=== PATIENT | male | born 1960 | race Caucasian/White ===

== ENCOUNTER 2023-08-09 08:15 | Emergency (ER) | payer OTHER, SELFPAY ==
[2023-08-09 08:21] VITALS: BP 130/90
--- NOTE | 2023-08-09 09:34 | ED.GENMED ---
History of Present Illness
General
Chief Complaint: Musculo-Skeletal Complaint
Source: patient
Exam Limitations: none
Time Seen by Provider: 08/09/23 08:43
Nursing documentation reviewed up to this point in time: agreed with
Travel History
Have you had any contact with someone who has COVID-19?: No
Do you have any symptoms of coronavirus? Fever > 100 degrees, chills, cough, shortness of breath, sore throat, loss of taste or smell, muscle aches, or headache?: No
History of Present Illness
History of Present Illness:
63-year-old male presenting to the emergency department today with concerns of right-sided thumb discomfort after a water jug in the standard water jug hit his thumb has felt pain since occurred yesterday. Ongoing symptoms. Additionally has had
ongoing shoulder discomfort with certain movements ever since his grandson fell asleep on his shoulder 1 week ago. Has pain with certain movements but denies any redness swelling warmth or additional trauma to the area denies numbness weakness or
additional concerns.
Review of Systems
Review of Systems
Allergies reviewed?: Yes
All Other Systems: ROS reviewed and negative except as documented in HPI and ROS
Phy Exam
Physical Exam
Physical Exam:
GENERAL: Alert , in no apparent distress
EYE: pupils equal and reactive
NECK: Supple, no significant adenopathy.
ENT: o/p clr, mmm.
CARDIAC: Regular rate and rhythm .
LUNGS: Clear breath sounds bilaterally, no acute respiratory distress, no wheezes/rales/rhonchi
ABDOMEN: Soft, without focal tenderness, no r/g, no cvat
NEUROLOGICAL: Alert and oriented, no focal neuro deficits
SKIN: Warm and dry, skin intact.
MUSCULOSKELETAL: Reproducible tenderness when palpating the right anterior shoulder increased discomfort with movement overhead and with empty can test. No redness or warmth. Patient does have tenderness to the distal right thumb no overlying skin
changes no subungual hematoma good range of motion and strength. Normal sensation neurovascular intact, well perfused.
PSYCH: Normal and appropriate interaction.
Course
Orders/Labs/Results
Orders:
Orders
08/09/23 08:27
CR Finger(s)/thumb Min 2 Vw Rt Urgent
Comment:
Reason For Exam: jammed finger
Indicate Which Finger:: Thumb
08/09/23 08:31
CR Shoulder - Right Min 2 View Urgent
Comment:
Reason For Exam: pain
Vital Signs
Initial and Last Documented VS:
Initial Vital Signs
Temp Pulse Resp BP Pulse Ox
98.9 F 78 20 130/90 96
08/09/23 08:21 08/09/23 08:21 08/09/23 08:21 08/09/23 08:21 08/09/23 08:21
Last Documented Vital Signs
Temp Pulse Resp BP Pulse Ox
98.9 F 78 20 130/90 96
08/09/23 08:21 08/09/23 08:21 08/09/23 08:21 08/09/23 08:21 08/09/23 08:21
MDM/Problems Addressed
MDM/Problems Addressed:
63-year-old male presenting to the emergency department today with concerns of right thumb pain and right shoulder pain shoulder pain was ever since his son fell asleep on his shoulder. Made worse with certain movements and palpation. Appears to
be a mechanical pain to the right shoulder but no evidence of bony injury in general has good range of motion does not appear to be consistent with any referred pain considering that there was an inciting event and is reproducible with movement and
palpation. X-ray without signs of acute changes. Additionally had a injury where his thumb was hit by a water jug. X-ray did not show signs of fracture patient with likely soft tissue injury plan for rest ice compression and elevation with
hopeful improvement of symptoms over time. Return precautions given.
*Critical Care Note
Total Time (30-74mins, 75-104mins- exclusive of procedures): Not Applicable
ED Attending Note
-
Portions of this chart may have been created with voice recognition software.� Occasional wrong word or��sound alike� substitutions may have occurred due to the inherent limitations of voice recognition software.
Discharge Plan
Departure
Patient Disposition: Home (Routine Discharge)
Date of Disposition: 08/09/23
Time of Disposition: 09:37
Patient with high blood pressure during this ER visit?: No
Condition: Good
Covid-19: Not Applicable
Discharge Problem:
Finger contusion, Shoulder sprain
Instructions: Muscle and Bone Pain (DC)
Referrals:
Smith Hernández MD [Family Provider] -
Patsy Stroud I., DO [Active] - Follow up in 5-7 days
Activity Restrictions/Additional Instructions:
You came to the emergency department today with concerns of thumb pain and shoulder pain. X-rays without signs of fracture. These are soft tissue injuries and should be treated with gradual increasing activity over the next few days. Return to
the emergency department for any worsening, new or concerning symptoms
Interventions
Interventions:
*Risk Screen - Suicide Last Done: 08/09/23 08:24
*General Assessment Last Done: 08/09/23 08:24
*Neglect/Abuse Screening Last Done: 08/09/23 08:24
*ED COVID-19 Vaccine History Last Done: 08/09/23 08:24
== END 2023-08-09 09:47 | disposition home or self-care (01) ==
LOC: EMR 08:15
PROVIDERS: EMERGENCY PHYSICIAN Emergency Medicine; FAMILY PHYSICIAN Family Medicine
DX: S60.011A Contusion of right thumb without damage to nail, initial encounter (principal); S43.401A Unspecified sprain of right shoulder joint, initial encounter; W23.0XXA Caught, crushed, jammed, or pinched between moving objects, initial encounter; E78.5 Hyperlipidemia, unspecified
CPT/HCPCS: 99284; 73030; 73140

== ENCOUNTER → 2024-01-15 12:06 | Outpatient (REF) | payer OTHER, SELFPAY ==
[2024-01-15 15:36] LABS: % Basophils 0.5 % (0-2); % Eosinophils 2.3 % (0-6); % Immature Granulocytes 0.2 % (0-0.5); % Lymphocytes 23.9 % (20.5-51.1); % Monocytes 9.3 % (1.7-9.3); % Neutrophils 63.8 % (42.2-75.2); Absolute Eosinophils 0.2 10^3/uL (0-0.7); Absolute Monocytes 0.8 10^3/uL (0.1-0.6); Absolute Neutrophils 5.3 10^3/uL (1.4-6.5); Hematocrit 45.4 % (39.0-52.0); Hemoglobin 15.7 g/dL (13.0-18.0); Mean Corp Hgb Conc. 34.6 g/dL (33.0-37.0); Mean Corpuscular Volume 92.7 fL (80.0-94.0); Mean Platelet Volume 10.3 fL (7.4-10.4); Nucleated Red Blood Cells % 0 % (-); Platelet Count 299 10^3/uL (130-400); Red Cell Dist. Width 13.1 % (11.5-14.5); White Blood Cell Count 8.3 10^3/uL (4.8-10.8)
[2024-01-15 15:45] LABS: ALT (SGPT) 25 U/L (0-50); AST (SGOT) 49 U/L (17-59); Albumin 4.7 g/dl (3.5-5.0); Alkaline Phosphatase 62 U/L (38-126); Blood Urea Nitrogen 16 mg/dl (9-20); Calcium 9.9 mg/dl (8.4-10.2); Carbon Dioxide 29 mmol/L (22-30); Chloride 101 mmol/L (98-107); Glucose 89 mg/dl (70-99); HDL Cholesterol 47 mg/dl; LDL Cholesterol, Calculated 97 mg/dl; Potassium 4.5 mmol/L (3.5-5.1); Sodium 137 mmol/L (135-145); Total Cholesterol 163 mg/dl (50-199); Total Protein 7.6 g/dl (6.3-8.2); Triglyceride 97 mg/dl (10-149); Very Low Density Lipoprotein 19 mg/dl (0-30); eGFR > 60.00
[2024-01-15 16:16] LABS: PSA, Total - Screen 1.06 ng/ml (0.0-4.0); TSH Reflex To Free T4 0.86 uIU/ml (0.47-4.68)
[2024-01-15 17:30] LABS: Hepatitis C Antibody Negative (Negative)
== END ==
LOC: HWLAB 12:06
PROVIDERS: ATTENDING PHYSICIAN Nurse Practitioner Family; REFERRING PHYSICIAN Urology
DX: D68.2 Hereditary deficiency of other clotting factors (principal); E78.2 Mixed hyperlipidemia; Z11.59 Encounter for screening for other viral diseases; Z12.5 Encounter for screening for malignant neoplasm of prostate
CPT/HCPCS: 36415; 80053; 80061; 81240; 84443; 85025; 86803; G0103